=== PATIENT | female | born 1960 | race Caucasian/White ===

== ENCOUNTER 2020-02-12 10:07 | Day surgery (SDC) | payer BC, MEDICARE ==
[2020-02-05 12:47] LABS: BASOPHILS # (AUTO) 0.1 X10'3 (0-0.2); BASOPHILS % (AUTO) 1.1 % (0-1); EOSINOPHILS # (AUTO) 0.3 X10'3 (0-0.9); EOSINOPHILS % (AUTO) 3.5 % (0-6); LYMPHOCYTES # (AUTO) 2.3 X10'3 (1.1-4.8); LYMPHOCYTES % (AUTO) 26.8 % (21-51); MEAN CORPUSCULAR HEMOGLOBIN 26.6 PG (27.0-31.0); MEAN CORPUSCULAR HGB CONC 32.1 g/dL (33.0-36.5); MEAN CORPUSCULAR VOLUME 82.8 FL (78-98); MEAN PLATELET VOLUME 7.5 FL (7.4-10.4); MONOCYTES # (AUTO) 0.4 X10'3 (0-0.9); MONOCYTES % (AUTO) 4.8 % (2-12); NEUTROPHILS # (AUTO) 5.4 X10'3 (1.8-7.7); NEUTROPHILS % (AUTO) 63.8 % (42-75); PRE OP HEMATOCRIT 38.3 % (35.0-45.0); PRE OP HEMOGLOBIN 12.3 g/dL (12.0-16.0); PRE OP PLATELET COUNT 504 X10'3 (140-440); RED BLOOD COUNT 4.63 X10'6 (4.20-5.60); RED CELL DISTRIBUTION WIDTH 18.6 % (11.5-14.5)
[2020-02-05 13:10] LABS: ALBUMIN 3.2 G/DL (3.4-5.0); ALBUMIN/GLOBULIN RATIO 0.7 (1.1-1.5); ALKALINE PHOSPHATASE 97 IU/L (46-116); BLOOD UREA NITROGEN 9 MG/DL (7-18); BUN/CREATININE RATIO 11.3 (6.6-38.0); CALCIUM 9.3 MG/DL (8.5-10.1); CHLORIDE 107 MMOL/L (99-107); PRE OP ALT 29 U/L (30-65); PRE OP ANION GAP 6 (8-16); PRE OP AST 17 U/L (10-37); PRE OP BILIRUB, TOTAL 0.3 MG/DL (0.0-1.0); PRE OP GLUCOSE 92 MG/DL (70-104); PRE OP POTASSIUM 4.1 MMOL/L (3.4-5.1); PRE OP SODIUM 144 MMOL/L (135-145); TOTAL CARBON DIOXIDE 31.3 MMOL/L (24-32); TOTAL PROTEIN 7.9 G/DL (6.4-8.2); eGFR 74 ML/MIN
[2020-02-05 13:18] LABS: PLATELET ESTIMATE INCREASED
[2020-02-05 13:19] LABS: ANISOCYTOSIS 2+
[2020-02-05 14:37] LABS: PLATELET FUNCTION (ADP) 182 SECONDS (63-104)
[2020-02-11 18:19] LABS: PLATELET FUNCTION (ADP) 170 SECONDS (63-104)
[~2020-02-12] VITALS: Ht 157.5 cm; Wt 61.2 kg
[~2020-02-12 10:07] MED LIST: LACT1CAP65 PO; MULT-1085 PO; famotidine 20mg tablet PO ONE; oxymetazoline 15 ML nasal spray NS SCH; ringers solution, lacted 1,000 ML IV SCH
--- NOTE | 2020-02-12 11:00 | NUR ---
DR WINSLOW WENT INTO SEE PT AND CANCELLED SURGERY DUE TO ABNORMAL LABS.
== END 2020-02-12 11:18 | disposition home or self-care (01) ==
LOC: PAS 10:07
PROVIDERS: ATTEND Otolaryngology
DX: J98.8 Other specified respiratory disorders (principal); Z53.8 Procedure and treatment not carried out for other reasons; Z72.89 Other problems related to lifestyle; Z98.890 Other specified postprocedural states; Z87.891 Personal history of nicotine dependence; Z88.2 Allergy status to sulfonamides; Z79.899 Other long term (current) drug therapy; Z90.710 Acquired absence of both cervix and uterus; Z79.01 Long term (current) use of anticoagulants; Z11.59 Encounter for screening for other viral diseases
CPT/HCPCS: 36415; 80053; 85025; 85576; 85610; 85730; U0003; J7120

== ENCOUNTER 2025-03-11 12:21 | Emergency (ER) | payer MEDICARE ==
[~2025-03-11] VITALS: Ht 157.5 cm; Wt 59.1 kg
[~2025-03-11 12:21] MED LIST changes: -famotidine 20mg tablet PO ONE; -oxymetazoline 15 ML nasal spray NS SCH; -ringers solution, lacted 1,000 ML IV SCH
[2025-03-11 12:34] VITALS: BP 147/74; PULSE 80; RESP 15; O2SAT 98
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
[2025-03-11 13:12] LABS: LEUKOCYTE ESTERASE ,URINE NEGATIVE (Neg); NITRITES, URINE NEGATIVE (Neg); OCCULT BLOOD,URINE NEGATIVE (Neg)
[2025-03-11 13:14] LABS: UA COLLECTION TYPE CLN CATCH MIDSTREAM
[2025-03-11 14:36] LABS: MEAN PLATELET VOLUME 8.9 FL (7.4-10.4); RED CELL DISTRIBUTION WIDTH 18.8 % (11.5-14.5)
[2025-03-11 14:45] LABS: CREATININE 0.84 MG/DL (0.40-0.90); TOTAL CARBON DIOXIDE 28.7 MMOL/L (24-32); eCRCL 54 ML/MIN; eGFR 68 ML/MIN
[2025-03-11 15:01] LABS: PLATELET ESTIMATE NORMAL
[2025-03-11] MEDS ORDERED: ketorolac trometh 15mg/ml vial 15 MG/ML ML IM ONE (15:05)
[2025-03-11 15:24] VITALS: TEMP 98
== END 2025-03-11 15:26 | disposition home or self-care (01) ==
LOC: ER 12:22
DX: R20.0 Anesthesia of skin (principal); M54.9 Dorsalgia, unspecified
CPT/HCPCS: 36415; 80048; 81003; 85008; 85025; 99283

== ENCOUNTER 2025-08-01 08:36 | Outpatient (CLI) | payer MEDICARE ==
--- NOTE | 2025-08-01 11:13 | RADIOLOGY REPORT ---
[facility] EXAMINATION: MR MRI HEAD INDICATION: ABNORMAL FINDINGS ON DX IMAGING OF SKULL AND HEAD, NEC COMPARISON: None TECHNIQUE: Multiplanar, multisequence magnetic resonance imaging of the brain was performed without the use of intravenous contrast. FINDINGS: 1. Nondiagnostic examination as comparison examinations were not made available Noncontrast images are not made available. IMPRESSION: Nondiagnostic examination as comparison examinations were not made available Noncontrast images are not made available.
[2025-08-01] MEDS ORDERED: GADOTERATE MEGLUMINE 7.5 MMOL/15 ML VIAL IV ONE (12:12)
== END 2025-08-01 23:59 | disposition home or self-care (01) ==
LOC: MRI 08:36
PROVIDERS: ATTEND Nurse Practitioner Family
DX: G62.9 Polyneuropathy, unspecified (principal); R93.0 Abnormal findings on diagnostic imaging of skull and head, not elsewhere classified
CPT/HCPCS: 70552; A9575